=== PATIENT | male | born 1975 | race Caucasian/White ===

== ENCOUNTER 2016-06-21 23:02 | Emergency (ER) | payer MEDICARE ==
[~2016-06-21 23:02] MED LIST: Iopamidol 370 76% 100 ML VIAL ONE
[2016-06-21] MEDS ORDERED: Ondansetron HCl/PF 4 MG/2 ML Vial ONE (23:28)
[2016-06-21] MEDS ORDERED: Fentanyl 100 MCG/2 ML VIAL ONE (23:28)
[2016-06-22 00:03] LABS: #Basophils 0.2 thou/uL (0.0-0.2); #Eosinphils 0.7 thou/uL (0.0-0.7); #Lymphocytes 1.9 thou/uL (1.20-3.40); #Monocytes 0.7 thou/uL (0.11-0.59); #Neutrophils 12.8 thou/uL (1.40-6.50); %Basophils 1.4 % (0.0-1.0); %Eosinophils 4.3 % (0.0-10.0); %Monocytes 4.1 % (0.0-10.0); Hematocrit 49.8 % (42.0-52.0); Mean Platelet Volume 6.1 fL (7.4-10.4); Red Blood Cell (RBC) Count 5.57 mill/uL (4.70-6.10); White Blood Cell (WBC) Count 16.3 thou/uL (4.8-10.8)
[2016-06-22] MEDS ORDERED: Ketorolac Tromethamine 30 MG/ML VIAL ONE (00:03)
[2016-06-22 00:07] LABS: ALT (SGPT) 15 U/L (0-55); AST (SGOT) 18 U/L (5-34); Alkaline Phosphatase 70 U/L (40-150); Anion Gap 16 mmol/L (10-20); BUN (Urea Nitrogen) 19 mg/dL (8.9-20.6); Bilirubin, Total 0.7 mg/dL (0.2-1.2); Calc. Creatinine Clearance 0 mL/min (70-130); Calcium 9.3 mg/dL (7.8-10.44); Carbon Dioxide 21 mmol/L (22-29); Chloride 106 mmol/L (98-107); Estimated GFR-MDRD 75; Globulin 3.2 g/dL (2.4-3.5); Lipase 15 U/L (8-78); Protein, Total 7.5 g/dL (6.0-8.3)
[2016-06-22 00:08] LABS: Blood, Urine Large (Negative); Glucose, Urine (Dipstick) Negative (Negative); Ketone, Urine Negative (Negative); Nitrite Negative (Negative); Protein, Urine (Dipstick) 100 mg/dL (Neg-Trace)
[2016-06-22 00:10] LABS: Bilirubin Negative (Negative); RBC/HPF 21-50 HPF (0-3)
[2016-06-22 00:11] LABS: Bacteria/HPF 1+ HPF (None Seen); Squamous Epithelial 0-3 HPF (0-3)
[2016-06-22] MEDS ORDERED: Sodium Chloride 0.9% 100 ML ONE (00:11)
[2016-06-22] MEDS ORDERED: Piperacillin/Tazobactam 3.375 GM VIAL ONE (00:11)
--- NOTE | 2016-06-22 02:02 | PICIS ---
[facility] EMERGENCY RECORD COMMUNICATIONS (SatJun 22, 2016 01:34 [facility]) COMMUNICATIONS: Physician, contacted/paged at [phone], Reason for notification transfer, Dr Truner accepts. TRIAGE (23:16 CHOB) TRIAGE NOTES: LOWER ABD PAIN STARTED 1 HR AGO, EMESIS X1. HAD NORMAL BM PRIOR TO ARRIVAL. HOT FLASH X1. (23:16 CHOB) PATIENT: NAME: Alireza Dye IV, AGE: 41, GENDER: male, : [place] 1975, TIME OF GREET: SatJun 21, 2016 23:03, PREFERRED LANGUAGE: Slovak, ETHNICITY: Not or , ECODE BILLING MAP: [facility], SSN: [id number], Zip Code: [address], KG WEIGHT: [phone], PHONE: , , , PERSON ID: [id number], PAYMENT: [facility] Medicare, PCP: DO HECTOR KRISTEL. (23:16 CHOB) COMPLAINT: ABD PAIN. (23:16 CHOB) ADMISSION: URGENCY: 3 Urgent, ADMISSION SOURCE: Home, TRANSPORT: CAR, BED: ER -02. (23:16 CHOB) ASSESSMENT: Assessment: PT A/OX4, SKIN PWD, AMBULATES WITH STEADY GAIT. GCS 15 (4,5,6) RESPIRATIONS EVEN NON LABORED. NO ACUTE DISTRESS NOTED. SEE ASSESSMENT FLOW SHEET, Symptoms began 06/21/2016 22:19. (23:20 CHOB) PAIN: Patient complains of pain described as, cramping, Location ABDOMEN, Pain is intermittent, No aggravating factors, No efforts tried to relieve symptoms. (23:20 CHOB) IMMUNIZATIONS: Flu vaccine not up to date, Tetanus not up to date, Pneumococcal vaccine not up to date. (23:20 CHOB) SIRS SCORING: Heart Rate 55-109 (0), Temp range 96.8-101.1 (0), respiratory rate 12-24 (0), Mental Status altered: no (0), Infection or Suspected Infection: No. (23:20 CHOB) TRIAGE SCREENING: Patient denies suicidal ideation, Patient denies presence of domestic violence. (23:20 CHOB) PROVIDERS: TRIAGE NURSE: Maia Valdez RN. (23:16 CHOB) VITAL SIGNS: BP 153/96, Pulse 75, (Regular), Resp 19, (Non-Labored), Temp 97.3, (Oral), Pain 8, (Intermittent), O2 Sat 98, on Room Air, Time 06/21/2016 23:14. (23:14 CHOB) PREVIOUS VISIT ALLERGIES: No Known Drug Allergies. (23:16 CHOB) No Known Drug Allergies. (23:20 CHOB) KNOWN ALLERGIES No Known Allergies (Unconfirmed) No Known Drug Allergies CURRENT MEDICATIONS (23:17 CHOB) None VITAL SIGNS VITAL SIGNS: BP: 153/96, Pulse: 75 (Regular), Resp: 19 (Non-Labored), Temp: 97.3 (Oral), Pain: 8 (Intermittent), O2 sat: 98 &a-1R&a+25V*p+0X*d9249S*c202B*c15G*c2P*p-0X&a-25V&a+1R Name: Alireza Dye AQUILES : 1975 M41 MedRec: [id number] AcctNum: [id number] Prepared: SatJun 22, 2016 01:59 by Interface Page 1 of 12 pMD [facility] EMERGENCY RECORD on Room Air, Time: 06/21/2016 23:14. (23:14 CHOB) BP: 139/91, Pulse: 83, Resp: 18, O2 sat: 96 on Room Air, Time: 06/22/2016 00:00. (SatJun 22, 2016 00:00 CHOB) BP: 141/84, Pulse: 91, Resp: 18, O2 sat: 96 on Room Air, Time: 06/22/2016 01:45. (SatJun 22, 2016 01:45 CHOB) NURSING ASSESSMENT: ABDOMEN (23:20 CHOB) CONSTITUTIONAL: Complex assessment performed, Patient arrives ambulatory, Gait steady, History obtained from patient, Patient appears comfortable, Patient cooperative, Patient alert, Oriented to person, place and time, Skin warm, Skin dry, Skin normal in color, Mucous membranes pink, Mucous membranes moist, Patient is well-groomed, Patient complains of DIFFUSE ABDOMINAL PAIN. PAIN: cramping pain, diffusely, Pain radiates, ACROSS ABDOMEN TO BILAT FLANKS, Onset of pain 06/21/2016 22:21, on a scale 0-10 patient rates pain as 8, Pain exacerbated by nothing, Nothing has been tried to alleviate the pain. ABDOMEN: Abdomen assessment findings include abdomen symmetrical, Abdomen soft, tender, diffusely, Associated with nausea, Associated with vomiting, currently, Number of times: 1, no associated diarrhea, no associated constipation, Date of last bowel movement: 06/21/2016 23:21. GENITOURINARY MALE: Male genitourinary assessment findings include external genitalia normal. SAFETY: Side rails up, Cart/Stretcher in lowest position, Call light within reach, Hospital ID band on. NURSING PROCEDURE: IV (23:35 CHOB) PATIENT IDENITIFIER: Patient actively involved in identification process, Patient's identity verified by patient stating name, Patient's identity verified by patient stating date. IV SITE 1: IV therapy indicated for hydration, IV therapy indicated for medication administration, IV established, to the left forearm, using a 20 gauge catheter, in one attempt, IV site prepped with CHLORAPREP, Flushed with normal saline (mls): 10, Labs drawn at time of placement, labeled in the presence of the patient and sent to lab. FOLLOW-UP SITE 1: After procedure, sterile transparent dressing applied, After procedure, IV line connections checked and properly labeled. SAFETY: Side rails up, Cart/Stretcher in lowest position, Call light within reach, Hospital ID band on. NURSING PROCEDURE: URINE COLLECTION (23:30 CHOB) PATIENT IDENTIFIER: Patient actively involved in identification process, Patient's identity verified by patient stating name, Patient's identity verified by patient stating date. URINE COLLECTION MALE: Urine collection indicated for ABDOMINAL &a-1R&a+25V*p+0X*y8426H*c202B*c15G*c2P*p-0X&a-25V&a+1R Name: Alireza Dye IV : 1975 M41 MedRec: [id number] AcctNum: [id number] Prepared: SatJun 22, 2016 01:59 by Interface Page 2 of 12 pMD [facility] EMERGENCY RECORD PAIN, Urine collected by mid-stream clean catch, Output amount (mL) 120, urine tea in color, and cloudy, Specimen labeled in the presence of the patient and sent to lab. SAFETY: Side rails up, Cart/Stretcher in lowest position, Call light within reach, Hospital ID band on. ORDER DETAILS Order Name: CBC with Differential, Status: Active, Time: 23:22 06/21/2016, User: ZHENG, - Ordered for: DO Luna Joseph, - Entered by: DO Luna Joseph - Katelin Jun 21, 2016 23:22, - Quantity: 1, Order Name: Comprehensive Metabolic Panel, Status: Active, Time: 23:22 06/21/2016, User: ZHENG, - Ordered for: DO Luna Joseph, - Entered by: DO Luna Joseph - [place]elin Jun 21, 2016 23:22, - Quantity: 1, Order Name: CT Abdomen Pelvis W Con, Status: Active, Time: 23:22 06/21/2016, User: ZHENG, - Ordered for: DO Luna Joseph, - Entered by: DO Luna Joseph - Katelin Jun 21, 2016 23:22, - Quantity: 1, Order Name: Culture, Urine, Status: Active, Time: 01:30 06/22/2016, User: ZHENG, - Ordered for: DO Luna Joseph, - Entered by: DO Luna Joseph - SatJun 22, 2016 01:30, - Quantity: 1, Order Name: ERRT Pulse Oximeter ER, Status: Active, Time: 23:22 06/21/2016, User: ZHENG, - Ordered for: DO Luna Joseph, - Entered by: DO Luna Joseph - [place]elin Jun 21, 2016 23:22, - Quantity: 1, Order Name: Lipase, Status: Active, Time: 23:22 06/21/2016, User: ZHENG, - Ordered for: DO Luna Joseph, - Entered by: DO Luna Joseph - [place] Jun 21, 2016 23:22, - Quantity: 1, Order Name: SALINE LOCK, Status: Done, Time: 00:01 06/22/2016, User: CHOB, - Ordered for: DO Luna Joseph, - Entered by: DO Luna Joseph - Katelin Jun 21, 2016 23:22, - Quantity: 1, Order Name: Urinalysis w/ Rflx Microscopic, Status: Active, Time: 23:22 06/21/2016, User: ZHENG, - Ordered for: DO Luna Joseph, - Entered by: DO Luna Joseph - [place] Jun 21, 2016 23:22, - Quantity: 1. MEDICATION ADMINISTRATION SUMMARY &a-1R&a+25V*p+0X*k8717H*c202B*c15G*c2P*p-0X&a-25V&a+1R Name: Alireza Dye AQUILES : 1975 M41 MedRec: [id number] AcctNum: [id number] Prepared: SatJun 22, 2016 01:59 by Interface Page 3 of 12 pMD [facility] EMERGENC[facility] RECORD Drug Name: Dilaudid injection, Dose Ordered: 1 mg, Route: IV Push, Status: Given, Time: 01:31 06/22/2016, Drug Name: Zosyn, Dose Ordered: 3.375 g, Route: IV Piggy Back, Status: Given, Time: 00:30 06/22/2016, Drug Name: Toradol injection, Dose Ordered: 30 mg, Route: IV Push, Status: Given, Time: 00:07 06/22/2016, Drug Name: Normal Saline, Dose Ordered: 1000 mL/hr, Route: IV Fluid Infusion, Status: Given, Time: 23:40 06/21/2016, Drug Name: fentaNYL (PF) injection, Dose Ordered: 100 mcg, Route: IV Push, Status: Given, Time: 23:37 06/21/2016, Drug Name: Zofran intravenous, Dose Ordered: 4 mg, Route: IV Push, Status: Given, Time: 23:35 06/21/2016, Detailed record available in Medication Service section. MEDICATION SERVICE Dilaudid injection: Order: Dilaudid injection (hydromorphone HCl) - Dose: 1 mg : IV Push Schedule: Now Ordered by: Cristo Luna DO Entered by: Cristo Luna DO SatJun 22, 2016 01:28 Documented as given by: Maia Valdez RN SatJun 22, 2016 01:31 Patient, Medication, Dose, Route and Time verified prior to administration. Amount given: 1MG, IV SITE #1 IVP, subsequent different medication, Slowly, Pre-administration assessment shows O2 saturation reading 100%, Pre-administration assessment shows O2 AMT: R.A., Pre-administration assessment shows on room air, Connections checked prior to administration, Line traced prior to administration, Catheter placement confirmed via flush prior to administration, IV site without signs or symptoms of infiltration during medication administration, No swelling during administration, No drainage during administration, IV flushed after administration, Correct patient, time, route, dose and medication confirmed prior to administration, Patient advised of actions and side-effects prior to administration, Allergies confirmed and medications reviewed prior to administration, Patient in position of comfort, Side rails up, Cart in lowest position, Call light in reach. fentaNYL (PF) injection: Order: fentaNYL (PF) injection (fentanyl citrate/preservative free) - Dose: 100 mcg : IV Push Schedule: Now Ordered by: Cristo Luna DO Entered by: Cristo Luna DO [facility] Jun 21, 2016 23:24 , Acknowledged by: Maia Valdez RN [facility] Jun 21, 2016 23:24 Documented as given by: Maia Valdez RN [facility] Jun 21, 2016 23:37 Patient, Medication, Dose, Route and Time verified prior to administration. Amount given: 100MCG, IV SITE #1 IVP, subsequent different medication, Slowly, Pre-administration assessment shows O2 saturation &a-1R&a+25V*p+0X*j8132L*c202B*c15G*c2P*p-0X&a-25V&a+1R Name: Alireza Dye IV : 1975 M41 MedRec: [id number] AcctNum: [id number] Prepared: SatJun 22, 2016 01:59 by Interface Page 4 of 12 pMD [facility] EMERGENCY RECORD reading 100%, Pre-administration assessment shows O2 AMT: R.A., Pre-administration assessment shows on room air, Awake and alert- acceptable, Connections checked prior to administration, Line traced prior to administration, Catheter placement confirmed via flush prior to administration, IV site without signs or symptoms of infiltration during medication administration, No swelling during administration, No drainage during administration, IV flushed after administration, Correct patient, time, route, dose and medication confirmed prior to administration, Patient advised of actions and side-effects prior to administration, Allergies confirmed and medications reviewed prior to administration, Patient in position of comfort, Side rails up, Cart in lowest position, Call light in reach, CONTINUOUS PULSE OX PROBE IN PLACE TO PT LT FINGER. : Follow Up : Response assessment performed, No signs or symptoms of allergic reaction noted, No change in pain, _IV SITE #1:_, Advised not to ambulate without assistance, Patient in position of comfort, Side rails up, Cart in lowest position, Call light in reach. (SatJun 22, 2016 00:10 CHOB) Normal Saline: Order: Normal Saline (0.9 % sodium chloride) - Dose: 1000 mL/hr : IV Fluid Infusion Schedule: Now Ordered by: Cristo Luna DO Entered by: Cristo Luna DO [facility] Jun 21, 2016 23:24 , Acknowledged by: Maia Valdez RN [facility] Jun 21, 2016 23:24 Documented as given by: Maia Valdez RN [facility] Jun 21, 2016 23:40 Patient, Medication, Dose, Route and Time verified prior to administration. Amount given: 1LITER, IV SITE #1 IV fluids established for hydration, IV SITE #1 into left forearm, IV SITE #1 1st bag hung, amount 1 Liter hung, IV SITE #1 bolus of 1000 ml established, IV SITE #1 Rate of bolus, wide open, via primary tubing, Connections checked prior to administration, Line traced prior to administration, Catheter placement confirmed via flush prior to administration, IV site without signs or symptoms of infiltration during medication administration, No swelling during administration, No drainage during administration, IV flushed after administration, Correct patient, time, route, dose and medication confirmed prior to administration, Patient advised of actions and side-effects prior to administration, Allergies confirmed and medications reviewed prior to administration, Patient in position of comfort, Side rails up, Cart in lowest position, Call light in reach. : Follow Up : No signs or symptoms of allergic reaction noted, _IV SITE #1:_, IV fluid infusion discontinued, on SatJun 22, 2016 00:33, 55 minutes, ., Total amount infused: 1LITER, IV Line flushed after administration, Advised not to ambulate without assistance, Patient in position of comfort, Side rails up, Cart in lowest position, Call light in reach. (SatJun 22, 2016 00:33 CHOB) Toradol injection: Order: Toradol injection (ketorolac tromethamine) - Dose: 30 mg : IV Push Schedule: Now &a-1R&a+25V*p+0X*h3131H*c202B*c15G*c2P*p-0X&a-25V&a+1R Name: Alireza Dye IV : 1975 M41 MedRec: [id number] AcctNum: [id number] Prepared: SatJun 22, 2016 01:59 by Interface Page 5 of 12 pMD [facility] EMERGENC[facility] RECORD Ordered by: Cristo Luna DO Entered by: Cristo Luna DO SatJun 22, 2016 00:01 , Acknowledged by: Maia Valdez RN SatJun 22, 2016 00:03 Documented as given by: Maia Valdez RN SatJun 22, 2016 00:07 Patient, Medication, Dose, Route and Time verified prior to administration. Amount given: 30MG, IV SITE #1 IVP, subsequent different medication, Slowly, Connections checked prior to administration, Line traced prior to administration, Catheter placement confirmed via flush prior to administration, IV site without signs or symptoms of infiltration during medication administration, No swelling during administration, No drainage during administration, IV flushed after administration, Correct patient, time, route, dose and medication confirmed prior to administration, Patient advised of actions and side-effects prior to administration, Allergies confirmed and medications reviewed prior to administration, Patient in position of comfort, Side rails up, Cart in lowest position, Call light in reach. : Follow Up : Response assessment performed, No signs or symptoms of allergic reaction noted, Decreased pain, Decreased symptoms, _IV SITE #1:_, Advised not to ambulate without assistance, Patient in position of comfort, Side rails up, Cart in lowest position, Call light in reach, PT NOW SLEEPING WITH NO DISTRESS NOTED. (SatJun 22, 2016 00:40 CHOB) Zofran intravenous: Order: Zofran intravenous (ondansetron HCl) - Dose: 4 mg : IV Push Schedule: Now Ordered by: Cristo Luna DO Entered by: Cristo Luna DO [facility] Jun 21, 2016 23:24 , Acknowledged by: Maia Valdez RN [facility] Jun 21, 2016 23:24 Documented as given by: Maia Valdez RN [facility] Jun 21, 2016 23:35 Patient, Medication, Dose, Route and Time verified prior to administration. Amount given: 4MG, IV SITE #1 IVP, initial medication, Slowly, Connections checked prior to administration, Line traced prior to administration, Catheter placement confirmed via flush prior to administration, IV site without signs or symptoms of infiltration during medication administration, No swelling during administration, No drainage during administration, IV flushed after administration, Correct patient, time, route, dose and medication confirmed prior to administration, Patient advised of actions and side-effects prior to administration, Allergies confirmed and medications reviewed prior to administration, Patient in position of comfort, Side rails up, Cart in lowest position, Call light in reach. : Follow Up : Response assessment performed, No signs or symptoms of allergic reaction noted, Decreased symptoms, Decreased nausea, _IV SITE #1:_, Advised not to ambulate without assistance, Patient in position of comfort, Side rails up, Cart in lowest position, Call light in reach. (SatJun 22, 2016 00:05 CHOB) Zosyn: Order: Zosyn (piperacillin sodium/tazobactam sodium) - &a-1R&a+25V*p+0X*v3277D*c202B*c15G*c2P*p-0X&a-25V&a+1R Name: Alireza Dye IV : 1975 M41 MedRec: [id number] AcctNum: [id number] Prepared: SatJun 22, 2016 01:59 by Interface Page 6 of 12 pMD [facility] EMERGENCY RECORD Dose: 3.375 g : IV Piggy Back Schedule: Now Ordered by: Cristo Luna DO Entered by: Cristo Luna DO SatJun 22, 2016 00:07 , Acknowledged by: Maia Valdez RN SatJun 22, 2016 00:08 Documented as given by: Maia Valdez RN SatJun 22, 2016 00:30 Patient, Medication, Dose, Route and Time verified prior to administration. Amount given: 3.375G(100ML), IV SITE #1 IVPB or drip, subsequent infusion, IVPB mixed in: 100ml, Fluid: 0.9NS, via primary tubing, at 200 ml/hr, Connections checked prior to administration, Line traced prior to administration, Catheter placement confirmed via flush prior to administration, IV site without signs or symptoms of infiltration during medication administration, No swelling during administration, No drainage during administration, IV flushed after administration, Correct patient, time, route, dose and medication confirmed prior to administration, Patient advised of actions and side-effects prior to administration, Allergies confirmed and medications reviewed prior to administration, Patient in position of comfort, Side rails up, Cart in lowest position, Call light in reach. : Follow Up : No signs or symptoms of allergic reaction noted, _IV SITE #1:_, IV fluid infusion discontinued, on SatJun 22, 2016 01:00, 30 minutes, ., Total amount infused: 100ML(3.375MG), IV Line flushed after administration, Advised not to ambulate without assistance, Patient in position of comfort, Side rails up, Cart in lowest position, Call light in reach. (SatJun 22, 2016 01:00 CHOB) HPI ABDOMINAL PAIN (23:45 JPIP) CHIEF COMPLAINT: Patient presents for evaluation of abdominal pain, Patient presents for evaluation of nausea and vomiting. HISTORIAN: History provided by patient. LOCATION MALE: Symptoms are localized, most severe in the lower abdomen, no radiation, No migration of pain. QUALITY: Pain is dull in nature, described as cramping. SEVERITY: Current severity of pain rated as 8/10. 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 ASSOCIATED WITH: No associated chills, No associated diarrhea, No associated fever, Associated with loss of appetite, Associated with nausea, No associated trauma, No associated recent travel, No associated urinary tract infection signs or symptoms, Associated with vomiting, Number of times: 6, patient reports 1 episode of emesis and another 5 of "dry heaves". States after the last episode he stood up and had a "hot flash"nd felt dizzy and diaphoretic. RELIEVED BY: Patient's condition relieved by nothing. EXACERBATED BY: Patient's condition exacerbated by nothing. ROS (23:47 JPIP) &a-1R&a+25V*p+0X*r7092G*c202B*c15G*c2P*p-0X&a-25V&a+1R Name: Alireza Dye AQUILES : 1975 M41 MedRec: [id number] AcctNum: [id number] Prepared: SatJun 22, 2016 01:59 by Interface Page 7 of 12 pMD [facility] EMERGENCY RECORD CONSTITUTIONAL: Historian denies chills, denies fever. ENT: Historian denies rhinorrhea, denies sore throat. CARDIOVASCULAR: Historian denies chest pain, denies dyspnea on exertion, denies palpitations. RESPIRATORY: Historian denies cough, denies shortness of breath. GI: Historian reports abdominal pain, reports anorexia, denies constipation, denies diarrhea, reports nausea, reports vomiting. Had a BM prior to arrival with no change in abdominal pain. GENITOURINARY MALE: Historian denies dysuria, denies hematuria, denies urinary frequency. MUSCULOSKELETAL: Historian denies myalgias. NEUROLOGIC: Historian denies confusion, reports dizziness, denies headache, denies lethargy, denies mental status changes. NOTES: All systems reviewed, negative except as described above. PAST MEDICAL HISTORY MEDICAL HISTORY: Notes: scoliosis, impaired vision-OD, blind left eye-OS. BILATERAL CATARACTS. DETACHED RETINAS BILATERALLY. Verified0 06/21/2016. (23:20 CHOB) MALE SURGICAL HISTORY: retina repair, mulitple surgeries-OU; back surgery >10 years ago. CATARACT REPAIR Verified 06/21/2016. (23:20 CHOB) PSYCHIATRIC HISTORY: no history of suicidal ideations, No history of suicide attempts, No history of hallucinations, No history of homicidal ideations, No history of violence towards others, No previous psychiatric history. 06/21/2016. (23:20 CHOB) SOCIAL HISTORY: Patient denies alcohol use, Patient denies drug use, Patient currently uses tobacco, smokes cigarettes, Patient smokes 1 pack per day. REVIEWED 06/21/2016. (23:20 CHOB) FAMILY HISTORY: Family istory is not significant. 06/21/2016. (23:20 CHOB) NOTES: Nursing records reviewed, Medication list reviewed. (23:49 JPIP) PHYSICAL EXAM (23:48 JPIP) CONSTITUTIONAL: Vital Signs Reviewed, Patient afebrile, Pulse normal, Blood pressure, hypertensive, Respiratory rate normal, Patient appears, uncomfortable, Patient appears, in mild pain distress, Patient alert and oriented to person, place and time, Nursing notes reviewed. HEAD: Head exam included findings of head atraumatic, normocephalic. EYES: Eye exam included findings of eyelids normal to inspection, Conjunctiva normal, Sclera normal, no periorbital ecchymosis, no periorbital edema, no periorbital erythema, no icterus. ENT: Pharynx exam normal, not injected, no swelling, symmetrical, Uvula exam normal, midline, no edema, Mouth exam normal, mucous membranes moist. &a-1R&a+25V*p+0X*q5936V*c202B*c15G*c2P*p-0X&a-25V&a+1R Name: Alireza Dye IV : 1975 M41 MedRec: [id number] AcctNum: [id number] Prepared: SatJun 22, 2016 01:59 by Interface Page 8 of 12 pMD [facility] EMERG[facility] RECORD NECK: Neck exam included findings of normal range of motion, Trachea midline, no cervical adenopathy, no tenderness, no contusions. RESPIRATORY CHEST: Respiratory exam included findings of no respiratory distress, Breath sounds clear, No wheezing, No rales, No rhonchi, Breath sounds not absent, Breath sounds not diminished. CARDIOVASCULAR: Cardiovascular exam included findings of heart rate regular rate and rhythm, Heart sounds normal, no murmurs, no rub. ABDOMEN MALE: Abdominal exam included findings of abdomen tender, to the left lower quadrant, to the suprapubic region, moderate intensity, Bowel sounds, hypoactive, Liver normal, Spleen normal, Distension present, no mass, no pulsatile masses, McBurney's point non-tender, no peritoneal signs, no rigidity, no guarding, no rebound, Shepherd's sign not present, Rovsing's sign absent. BACK: no tenderness, no costovertebral angle tenderness. UPPER EXTREMITY: Upper extremity exam included findings of inspection normal, Range of motion normal. LOWER EXTREMITY: Lower extremity exam included findings of inspection normal, Range of motion normal, no edema. NEURO: [place] coma scale 15, Neuro exam findings include patient oriented to person, place and time, no focal motor deficits. SKIN: Skin exam included findings of skin warm, dry, and normal in color. LYMPHATIC: Lymphatic exam included findings of cervical nodes normal, Submandibular normal. PSYCHIATRIC: Psychiatric exam included findings of patient oriented to person place and time, Normal affect. LAB INTERPRETATION (SatJun 22, 2016 00:08 [facility]) INTERPRETATION: I reviewed the lab results, All labs normal except as noted below, CBC abnormal, White blood cell count elevated, Chemistry abnormal, Bicarbonate decreased, Liver functions normal, Lipase normal. EVENTS TRANSFER: Triage to Emergency Emergency Room -02. ([place] Jun 21, 2016 23:16 CHOB) Removed from Emergency Emergency Room -02. (SatJun 22, 2016 01:58 CHOB) RADIOLOGYINTERPRETATION (SatJun 22, 2016 01:05 JPIP) ABDOMEN: Abdomen/pelvis CT scan, with contrast shows, no abscess, no diverticulitis, no fluid in abdomen, no fluid in pelvis, no free air, ureteral stone, hydronephrosis to the left kidney, Other findings: large ureteral stone (1.1x0.8 cm) with high grade obstruction left. 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 &a-1R&a+25V*p+0X*[id number]*c202B*c15G*c2P*p-0X&a-25V&a+1R Name: Alireza Dye AQUILES : 1975 M41 MedRec: [id number] AcctNum: [id number] Prepared: SatJun 22, 2016 01:59 by Interface Page 9 of 12 pMD [facility] EMERGENCY RECORD O2SAT INTERPRETATION (23:22 JPIP) O2SAT: Continuous pulse oximetry, Oxygen saturation 98%, on room air, Oxygen saturation interpretation: Normal, No intervention required. DOCTOR NOTES TEXT: Discussed findings with patient, recommend transfer to [facility] for further evaluation and treatment of the stone/obstruction. (SatJun 22, 2016 01:14 JPIP) Patient has refused ambulance transport to [facility], advised we would not be able to give him the Dilaudid pain meds and would have to pull his IV, to be restarted at [facility]. Initially he stated he would go, then he spoke with his on the phone and now he states he want's to have his take him. Patient has signed a refusal of ambulance and was DC'ed from the ED and advised to go directly to the ED in [facility]. (SatJun 22, 2016 01:42 JPIP) PROBLEM LIST No recorded problems DIAGNOSIS (SatJun 22, 2016 01:33 JPIP) FINAL: PRIMARY: hydronephrosis, ADDITIONAL: Acute cystitis with hematuria, ureteral stone with hygrade obstruction. DISPOSITION PATIENT: Disposition Type: Transfer, Disposition: Transfer to [facility], Disposition Transport: Ambulance, Condition: Good. (SatJun 22, 2016 01:33 JPIP) Disposition Transport: Designated Black Top Paver Operator. (SatJun 22, 2016 01:46 JPIP) Patient left the department. (SatJun 22, 2016 01:58 CHOB) PRESCRIPTION No recorded prescriptions IMAGING CT REPORT: Image captured from scanner. (SatJun 22, 2016 01:37 CHOB) Page 2 added. Image captured from scanner. (SatJun 22, 2016 01:37 CHOB) CONSENTS: Image captured from scanner. (SatJun 22, 2016 01:48 CHOB) *MEMORANDUM OF TRANSFER: Image captured from scanner. (SatJun 22, 2016 01:48 CHOB) RESULTS LABORATORY: CBC with Differential Collection DT: Katelin Jun 21, 2016 23:52, *White Blood Cell (WBC) Count 16.3 - H thou/uL, Range (4.8-10.8), Red Blood Cell (RBC) Count 5.57 mill/uL, Range (4.70-6.10), &a-1R&a+25V*p+0X*r2562O*c202B*c15G*c2P*p-0X&a-25V&a+1R Name: Alireza Dye AQUILES : 1975 M41 MedRec: [id number] AcctNum: [id number] Prepared: SatJun 22, 2016 01:59 by Interface Page 10 of 12 pMD [facility] EMERGENCY RECORD Hemoglobin 17.4 g/dL, Range (14.0-18.0), Hematocrit 49.8 %, Range (42.0-52.0), Mean Corpuscular Volume 89.4 fl, Range (80.0-94.0), *Mean Corpuscular Hemoglobin 31.3 - H pg, Range (27.0-31.0), Mean Corpuscular HGB CONC 35.0 g/dL, Range (32.0-36.0), *RBC Distribution Width 10.6 - L %, Range (11.5-14.5), Platelet Count 297 thou/uL, Range (130-400), *Mean Platelet Volume 6.1 - L fL, Range (7.4-10.4), *%Neutrophils 78.4 - H %, Range (42.0-75.0), *%Lymphocytes 11.9 - L %, Range (21.0-51.0), %Monocytes 4.1 %, Range (0.0-10.0), %Eosinophils 4.3 %, Range (0.0-10.0), *%Basophils 1.4 - H %, Range (0.0-1.0), *#Neutrophils 12.8 - H thou/uL, Range (1.40-6.50), #Lymphocytes 1.9 thou/uL, Range (1.20-3.40), *#Monocytes 0.7 - H thou/uL, Range (0.11-0.59), #Eosinphils 0.7 thou/uL, Range (0.0-0.7), #Basophils 0.2 thou/uL, Range (0.0-0.2). (SatJun 22, 2016 00:07 [facility]) Lipase Collection DT: SatJun 21, 2016 23:52, Lipase 15 U/L, Range (8-78). (SatJun 22, 2016 00:08 [facility]) Comprehensive Metabolic Panel Collection DT: SatJun 21, 2016 23:52, Sodium 139 mmol/L, Range (136-145), Potassium 4.1 mmol/L, Range (3.5-5.1), Chloride 106 mmol/L, Range (98-107), *Carbon Dioxide 21 - L mmol/L, Range (22-29), Anion Gap 16 mmol/L, Range (10-20), BUN (Urea Nitrogen) 19 mg/dL, Range (8.9-20.6), Creatinine 1.07 mg/dL, Range (0.7-1.3), Estimated GFR-MDRD 75 , Reference Range for Estimated GFR: Greater than 90, mL/min/1.73 m2 NOTE: The MDRD equation has not been validated for use, with the elderly (over 70 years of age), women, patients with, serious comorbid condition or persons with extremes of body size, muscle, mass, or nutritional status. , Glucose 100 mg/dL, Range (70-105), Calcium 9.3 mg/dL, Range (7.8-10.44), Bilirubin, Total 0.7 mg/dL, Range (0.2-1.2), Protein, Total 7.5 g/dL, Range (6.0-8.3), NOTE: Plasma values are generally 0.3 to 0.5 g/dL higher than serum values, due to the presence of fibrinogen. , Albumin 4.3 g/dL, Range (3.5-5.0), Globulin 3.2 g/dL, Range (2.4-3.5), Alb/Glob Ratio 1.3 g/dL, Range (1.2-2.2), Alkaline Phosphatase 70 U/L, Range (40-150), AST (SGOT) 18 U/L, Range (5-34), ALT (SGPT) 15 U/L, Range (0-55). (SatJun 22, 2016 00:08 JP) Lipase Collection DT: [facility] Jun 21, 2016 23:52, &a-1R&a+25V*p+0X*x8952F*c202B*c15G*c2P*p-0X&a-25V&a+1R Name: Alireza Dye AQUILES : 1975 3 MedRec: [id number] AcctNum: [id number] Prepared: SatJun 22, 2016 01:59 by Interface Page 11 of 12 pMD [facility] EMERGENCY RECORD Lipase 15 U/L, Range (8-78). (SatJun 22, 2016 00:10 JP) Urine Microscopic Collection DT: SatJun 22, 2016 00:08, *RBC/HPF 21-50 - H HPF, Range (0-3), *WBC/HPF 4-6 - H HPF, Range (0-3), Squamous Epithelial 0-3 HPF, Range (0-3), *Bacteria/HPF 1+ - H HPF, Range (None Seen). (SatJun 22, 2016 00:14 JPIP) Urinalysis w/ Rflx Microscopic Collection DT: SatJun 22, 2016 00:08, Color Dark yellow , Range (Yellow), Clarity Cloudy , Range (Clear), Specific Henriette, Urine 1.025 , Range (1.002-1.036), pH, Urine 5.5 , Range (5.0-9.0), *Leukocyte Trace - H , Range (Negative), Nitrite Negative , Range (Negative), *Protein, Urine (Dipstick) 100 - H mg/dL, Range (Neg-Trace), Glucose, Urine (Dipstick) Negative mg/dL, Range (Negative), Ketone, Urine Negative mg/dL, Range (Negative), *Urobilinogen 2.0 - H mg/dL, Range (0.2-1.0), Bilirubin Negative , Range (Negative), , *Blood, Urine Large - H , Range (Negative). (SatJun 22, 2016 00:14 JPIP) Carranza: GEE=COLTEN Valdez, Maia JPIP=DO Luna Joseph &a-1R&a+25V*p+0X*p8966F*c202B*c15G*c2P*p-0X&a-25V&a+1R Name: Alireza Dye IV : 1975 3 MedRec: [id number] AcctNum: [id number] Prepared: SatJun 22, 2016 01:59 by Interface Page 12 of 12 pMD MTDD
--- NOTE | 2016-06-22 02:02 | ERRECORD ---
[facility] EMERGENCY RECORD HPI ABDOMINAL PAIN (23:45 JPIP) CHIEF COMPLAINT: Patient presents for evaluation of abdominal pain, Patient presents for evaluation of nausea and vomiting. HISTORIAN: History provided by patient. LOCATION MALE: Symptoms are localized, most severe in the lower abdomen, no radiation, No migration of pain. QUALITY: Pain is dull in nature, described as cramping. SEVERITY: Current severity of pain rated as 8/10. 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 ASSOCIATED WITH: No associated chills, No associated diarrhea, No associated fever, Associated with loss of appetite, Associated with nausea, No associated trauma, No associated recent travel, No associated urinary tract infection signs or symptoms, Associated with vomiting, Number of times: 6, patient reports 1 episode of emesis and another 5 of "dry heaves". States after the last episode he stood up and had a "hot flash"nd felt dizzy and diaphoretic. RELIEVED BY: Patient's condition relieved by nothing. EXACERBATED BY: Patient's condition exacerbated by nothing. ROS (23:47 JPIP) CONSTITUTIONAL: Historian denies chills, denies fever. ENT: Historian denies rhinorrhea, denies sore throat. CARDIOVASCULAR: Historian denies chest pain, denies dyspnea on exertion, denies palpitations. RESPIRATORY: Historian denies cough, denies shortness of breath. GI: Historian reports abdominal pain, reports anorexia, denies constipation, denies diarrhea, reports nausea, reports vomiting. Had a BM prior to arrival with no change in abdominal pain. GENITOURINARY MALE: Historian denies dysuria, denies hematuria, denies urinary frequency. MUSCULOSKELETAL: Historian denies myalgias. NEUROLOGIC: Historian denies confusion, reports dizziness, denies headache, denies lethargy, denies mental status changes. NOTES: All systems reviewed, negative except as described above. PAST MEDICAL HISTORY MEDICAL HISTORY: Notes: scoliosis, impaired vision-OD, blind left eye-OS. BILATERAL CATARACTS. DETACHED RETINAS BILATERALLY. Verified0 06/21/2016. (23:20 CHOB) MALE SURGICAL HISTORY: retina repair, mulitple surgeries-OU; back surgery >10 years ago. CATARACT REPAIR Verified 06/21/2016. (23:20 CHOB) PSYCHIATRIC HISTORY: no history of suicidal ideations, No history of suicide attempts, No history of hallucinations, No history of homicidal ideations, No history of violence towards others, No &a-1R&a+25V*p+0X*[id number]*c202B*c15G*c2P*p-0X&a-25V&a+1R Name: Alireza Dye IV : 1975 M41 MedRec: [id number] AcctNum: [id number] Prepared: SatJun 22, 2016 01:59 by Interface Page 1 of 4 pMD [facility] EMERGENCY RECORD previous psychiatric history. 06/21/2016. (23:20 CHOB) SOCIAL HISTORY: Patient denies alcohol use, Patient denies drug use, Patient currently uses tobacco, smokes cigarettes, Patient smokes 1 pack per day. REVIEWED 06/21/2016. (23:20 CHOB) FAMILY HISTORY: Family istory is not significant. 06/21/2016. (23:20 CHOB) NOTES: Nursing records reviewed, Medication list reviewed. (23:49 JPIP) KNOWN ALLERGIES No Known Allergies (Unconfirmed) No Known Drug Allergies CURRENT MEDICATIONS (23:17 CHOB) None VITAL SIGNS VITAL SIGNS: BP: 153/96, Pulse: 75 (Regular), Resp: 19 (Non-Labored), Temp: 97.3 (Oral), Pain: 8 (Intermittent), O2 sat: 98 on Room Air, Time: 06/21/2016 23:14. (23:14 CHOB) BP: 139/91, Pulse: 83, Resp: 18, O2 sat: 96 on Room Air, Time: 06/22/2016 00:00. (SatJun 22, 2016 00:00 CHOB) BP: 141/84, Pulse: 91, Resp: 18, O2 sat: 96 on Room Air, Time: 06/22/2016 01:45. (SatJun 22, 2016 01:45 CHOB) PHYSICAL EXAM (23:48 JPIP) CONSTITUTIONAL: Vital Signs Reviewed, Patient afebrile, Pulse normal, Blood pressure, hypertensive, Respiratory rate normal, Patient appears, uncomfortable, Patient appears, in mild pain distress, Patient alert and oriented to person, place and time, Nursing notes reviewed. HEAD: Head exam included findings of head atraumatic, normocephalic. EYES: Eye exam included findings of eyelids normal to inspection, Conjunctiva normal, Sclera normal, no periorbital ecchymosis, no periorbital edema, no periorbital erythema, no icterus. ENT: Pharynx exam normal, not injected, no swelling, symmetrical, Uvula exam normal, midline, no edema, Mouth exam normal, mucous membranes moist. NECK: Neck exam included findings of normal range of motion, Trachea midline, no cervical adenopathy, no tenderness, no contusions. RESPIRATORY CHEST: Respiratory exam included findings of no respiratory distress, Breath sounds clear, No wheezing, No rales, No rhonchi, Breath sounds not absent, Breath sounds not diminished. CARDIOVASCULAR: Cardiovascular exam included findings of heart rate regular rate and rhythm, Heart sounds normal, no murmurs, no rub. ABDOMEN MALE: Abdominal exam included findings of abdomen tender, to the left lower quadrant, to the &a-1R&a+25V*p+0X*v1227A*c202B*c15G*c2P*p-0X&a-25V&a+1R Name: Alireza Dye IV : 1975 M41 MedRec: [id number] AcctNum: [id number] Prepared: SatJun 22, 2016 01:59 by Interface Page 2 of 4 pMD [facility] EMERGENCY RECORD suprapubic region, moderate intensity, Bowel sounds, hypoactive, Liver normal, Spleen normal, Distension present, no mass, no pulsatile masses, McBurney's point non-tender, no peritoneal signs, no rigidity, no guarding, no rebound, Shepherd's sign not present, Rovsing's sign absent. BACK: no tenderness, no costovertebral angle tenderness. UPPER EXTREMITY: Upper extremity exam included findings of inspection normal, Range of motion normal. LOWER EXTREMITY: Lower extremity exam included findings of inspection normal, Range of motion normal, no edema. NEURO: Batsheva coma scale 15, Neuro exam findings include patient oriented to person, place and time, no focal motor deficits. SKIN: Skin exam included findings of skin warm, dry, and normal in color. LYMPHATIC: Lymphatic exam included findings of cervical nodes normal, Submandibular normal. PSYCHIATRIC: Psychiatric exam included findings of patient oriented to person place and time, Normal affect. RADIOLOGYINTERPRETATION (SatJun 22, 2016 01:05 JPIP) ABDOMEN: Abdomen/pelvis CT scan, with contrast shows, no abscess, no diverticulitis, no fluid in abdomen, no fluid in pelvis, no free air, ureteral stone, hydronephrosis to the left kidney, Other findings: large ureteral stone (1.1x0.8 cm) with high grade obstruction left. OFFICE SYSTEM ANALYST: Preliminary review of CT scans by, Radiologist. MEDICATION ADMINISTRATION SUMMARY Drug Name: Dilaudid injection, Dose Ordered: 1 mg, Route: IV Push, Status: Given, Time: 01:31 06/22/2016, Drug Name: Zosyn, Dose Ordered: 3.375 g, Route: IV Piggy Back, Status: Given, Time: 00:30 06/22/2016, Drug Name: Toradol injection, Dose Ordered: 30 mg, Route: IV Push, Status: Given, Time: 00:07 06/22/2016, Drug Name: Normal Saline, Dose Ordered: 1000 mL/hr, Route: IV Fluid Infusion, Status: Given, Time: 23:40 06/21/2016, Drug Name: fentaNYL (PF) injection, Dose Ordered: 100 mcg, Route: IV Push, Status: Given, Time: 23:37 06/21/2016, Drug Name: Zofran intravenous, Dose Ordered: 4 mg, Route: IV Push, Status: Given, Time: 23:35 06/21/2016, Detailed record available in Medication Service section. DOCTOR NOTES TEXT: Discussed findings with patient, recommend transfer to [facility] for further evaluation and treatment of the stone/obstruction. (SatJun 22, 2016 01:14 JPIP) Patient has refused ambulance transport to [facility], advised we would not be able to give him the Dilaudid pain meds and would have to pull &a-1R&a+25V*p+0X*v1358O*c202B*c15G*c2P*p-0X&a-25V&a+1R Name: Alireza Dye IV : 1975 M41 MedRec: [id number] AcctNum: [id number] Prepared: SatJun 22, 2016 01:59 by Interface Page 3 of 4 pMD [facility] EMERGENCY RECORD his IV, to be restarted at [facility]. Initially he stated he would go, then he spoke with his on the phone and now he states he want's to have his take him. Patient has signed a refusal of ambulance and was DC'ed from the ED and advised to go directly to the ED in [facility]. (SatJun 22, 2016 01:42 JPIP) PROBLEM LIST No recorded problems DIAGNOSIS (SatJun 22, 2016 01:33 JPIP) FINAL: PRIMARY: hydronephrosis, ADDITIONAL: Acute cystitis with hematuria, ureteral stone with hygrade obstruction. PRESCRIPTION No recorded prescriptions DISPOSITION PATIENT: Disposition Type: Transfer, Disposition: Transfer to [facility], Disposition Transport: Ambulance, Condition: Good. 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 (SatJun 22, 2016 01:46 JPIP) Patient left the department. (SatJun 22, 2016 01:58 CHOJodie) Carranza: GEE=COLTEN Valdez Christina JPIP=DO Luna Joseph &a-1R&a+25V*p+0X*j3279Q*c202B*c15G*c2P*p-0X&a-25V&a+1R Name: José Miguelhammad Alirezanaomi Hughes IV : 1975 M41 MedRec: [id number] AcctNum: [id number] Prepared: SatJun 22, 2016 01:59 by Interface Page 4 of 4 pMD MTDD
--- NOTE | 2016-06-22 07:41 | CT ---
PRELIMINARY REPORT/[facility]/EMERGENCY AFTER HOURS PROCEDURE: EXAM: CT Abdomen and Pelvis With Intravenous Contrast. CLINICAL HISTORY: 41 years old, male; Pain; Abdominal pain; Localized; Lower; Patient HX: Pt presents to the er for ab dominal pain; Lower abd pain started 1 hr ago, emesis x1. Had normal bm prior to arrival. Hot flash x1. ; TECHNIQUE: Axial computed tomography images of the abdomen and pelvis with intravenous contrast. Coronal reform atted images were created and reviewed. CONTRAST: 96 mL of ISOVUE 370 administered intravenously. COMPARISON: No relevant prior studies available. FINDINGS: Lower thorax: Mild hypoventilatory changes are noted in the lung bases. ABDOMEN: Liver: Normal in appearance, without evidence of focal lesion. Gallbladder and bile ducts: No evidence of gallstones. No evidence of intrahepatic or extrahepatic b iliary ductal dilation. Pancreas: Normal in appearance, without evidence of focal lesion or pancreatic ductal dilation. Spleen: Normal in appearance, without evidence of splenomegaly. Adrenals: Normal in appearance, without evidence of focal nodule or mass. Kidneys and ureters: Moderate to severe left-sided hydronephrosis and hydroureter is noted to level of a 1.1 x 0.8 cm stone within the mid left ureter. Urothelial thickening is noted within the ureter al segment proximal to the obstructing stone. Several additional one-3 mm nonobstructing stones are not ed within the left kidney. No stones are identified within the right kidney or along the course of t he right ureter. Stomach and bowel: Normal in appearance, without evidence of mucosal thickening. No evidence of dominguez l obstruction. Appendix: The appendix is normal in appearance. PELVIS: Bladder: Normal in appearance. No abnormal masses identified. Reproductive: <Normal in appearance.> ABDOMEN and PELVIS: Intraperitoneal space: Normal. No free air. No significant fluid collection. Bones/joints: The thoracic levoscoliotic curve is noted. Degenerative changes are noted throughout t he visualized spine. Soft tissues: The visualized soft tissues are normal in appearance. Vasculature: Normal in appearance. Lymph nodes: No pathologically enlarged lymph nodes identified. IMPRESSION: 1. 1.1 x 0.8 cm mid left ureteral calculus with moderate to severe associated hydronephrosis. Proxim al left ureteral urothelial thickening. 2. Additional nonobstructing left renal calculi. Thank you for allowing us to participate in the care of your patient. Dictated and Authenticated by: Ge Velez MD 06/22/2016 12:58 AM Central Time ([place] \T\ Pat) FINAL REPORT CT ABDOMEN AND PELVIS WITH CONTRAST: DATE: 06/22/16. FINDINGS: Spiral CT of the abdomen and pelvis was performed for evaluation of severe lower abdominal pain. Ax ial slices were acquired after giving IV contrast. Oral contrast was withheld by request. Coronal reconstructions were then done. The major finding on the study is a large left ureteral calculus in the mid ureter at the L4-L5 leve l. It measures about 1.8 x 1.4 x 1.0 cm and is causing severe left hydronephrosis and hydroureter p roximally. The ureter proximal to this point is edematous and enhancing. There are a few tiny nono bstructing calculi remaining in the left kidney. None were seen in the right kidney. None were see n in the urinary bladder. Prostate seems mildly generous in volume for age. The lung bases show dependent atelectasis. The liver, spleen, pancreas, adrenal glands, gallbladder , and abdominal aorta showed no acute findings. The bowel is nondistended with no sign of obstruction. No inflammatory changes are seen associated with bowel. No free air or free fluid was seen. CT of the pelvis showed no pelvic masses, fluid collections, or inflammatory changes. The patient h as significant lumbar scoliosis convex right along with degenerative changes. There is some general ized bulging of the L5-S1 disk. IMPRESSION: Large calculus lodged in the middle of the left ureter at the L4-L5 level causing severe left hydron ephrosis and hydroureter. Several nonobstructing left renal calculi are present as well. Report in agreement with preliminary reading by [employer]. POS: HOME
== END 2016-06-22 01:58 | disposition short-term general hospital (02) ==
LOC: BURERS 23:02
DX: N13.2 Hydronephrosis with renal and ureteral calculous obstruction (principal); N30.01 Acute cystitis with hematuria; H54.42 Blindness, left eye, normal vision right eye; F17.210 Nicotine dependence, cigarettes, uncomplicated
CPT/HCPCS: 74177; 80053; 81003; 81015; 83690; 85025; 87086; 94760; 96361; 96365; 96375; J1170; J1885; J2405; J2543; J3010; J7050

== ENCOUNTER 2017-04-24 11:58 | Emergency (ER) | payer MEDICARE ==
[2017-04-24] MEDS ORDERED: Adacel (T-DAP) 0.5 ML VIAL ONE (12:22)
== END 2017-04-24 12:35 | disposition home or self-care (01) ==
LOC: BURERS 11:58
DX: L03.114 Cellulitis of left upper limb (principal); F17.210 Nicotine dependence, cigarettes, uncomplicated
CPT/HCPCS: 10060; 90715

== ENCOUNTER 2024-01-30 19:51 | Emergency (ER) | payer MEDICARE ==
[2024-01-30] MEDS ORDERED: methylPREDNISolone Sod Succ/PF 125 MG/2 ML VIAL ONE (20:24)
== END 2024-01-30 20:44 | disposition home or self-care (01) ==
LOC: BURERS 19:51
DX: M54.16 Radiculopathy, lumbar region (principal); F17.210 Nicotine dependence, cigarettes, uncomplicated
CPT/HCPCS: 96372; 99283; J2919